=== PATIENT | male | born 1995 | race Caucasian/White ===

== ENCOUNTER 2017-02-08 12:47 | Emergency (ER) | payer BC ==
[~2017-02-08] VITALS: Ht 182.9 cm; Wt 87.0 kg
[~2017-02-08 12:47] MED LIST: CETITAB27 PO
[2017-02-08 12:50] VITALS: TEMP 37; Ht 182.9 cm; Wt 87.0 kg
[2017-02-08] MEDS ORDERED: MULT-930 PO (13:02)
[2017-02-08] MEDS ORDERED: MONT1TAB3 PO (13:02)
[2017-02-08] MEDS ORDERED: LEVO-371 PO (13:03)
[2017-02-08 14:05] LABS: BASO % 0.6 %; BASO ABS # 0.06 K/uL (0-0.2); COMPLETE YES; EOS % 4.5 %; IG% 0.1 %; LYMPH % 16.3 %; LYMPH ABS # 1.57 K/uL (1.2-3.4); MEAN CELL VOLUME 87.1 fL (80-100); MEAN CORPUSCULAR HEMOGLOBIN 30.3 pg (25-34); MEAN CORPUSCULAR HGB CONC 34.8 g/dl (32-36); MEAN PLATELET VOLUME 9.5 fL (7.4-10.4); MONO % 9.3 %; NEUT % 69.2 %; PLATELET COUNT 234 K/uL (130-400); RED BLOOD COUNT 4.59 M/uL (4.7-6.1); WHITE BLOOD COUNT 9.62 K/uL (4.8-10.8)
[2017-02-08 14:33] VITALS: BP 136/76; PULSE 68; O2SAT 98
--- NOTE | 2017-02-08 20:23 | EMERGENCY ROOM VISIT NOTE ---
History First contact with patient: 13:04 Chief Complaint: ARM PAIN Stated Complaint: SUDDEN PAIN IN ARM PIT History of Present Illness The patient is a 21 year old male who presents to the Emergency Room with complaints of 2 small blackened areas present over his left lateral chest wall. It is along the area of the latissimus. Patient states he awoke this morning with pain in that area. He looked in the mirror and noticed the2 black spots. He states the area was somewhat red and swollen earlier today, though that has resolved. He was seen at [facility] and evaluated. He was told to see his PCP. Because he could not go home to [place], he came here for reevaluation. He was told that there were enlarged lymph nodes in his axilla at [facility]. He also states earlier today there was a tingling type pain running down the inside of his left arm. This has resolved. He denies being in the [place] and denies any tick exposure. He has never had this in the past. No other complaints. He denies any fevers, chills, sweats, nausea, or vomiting. No other treatment. Review of Systems REVIEW OF SYSTEM: HEENT: No dizziness, visual problems, hearing loss, or tinnitus. There is no difficulty swallowing and no oral lesions are present. LYMPH: No adenopathy. PULMONARY: No cough, shortness of breath, sputum production or hemoptysis. CARDIOVASCULAR: No chest pain, palpitations, shortness of breath or peripheral edema. GASTROINTESTINAL: No diarrhea, constipation, nausea, vomiting, or abdominal pain. GENITOURINARY: No dysuria, frequency, urgency or nocturia. NEUROLOGIC: No weakness, muscle tenderness, epilepsy or history of neurological problems. MUSCULOSKELETAL: No history of joint tenderness/swelling. No history of arthritis or arthralgias. SKIN: No rashes or lesions. PSYCHIATRIC: No history of depression or mental illness. ENDOCRINE: No history of diabetes, thyroid disorders, or abnormal hair growth. Past Medical/Surgical History Medical Problems: (1) Asthma (2) Valvular heart disease Surgical Problems: (1) History of appendectomy Septoplasty 2014 Family History Diabetes mellitus FH: cancer Hypertension, gallbladder disease. Parents are living. Social History Smoking Status: Never Smoker Smokeless Tobacco Use: No Alcohol Use: occasionally Drug Use: none Marital Status: single Housing Status: lives with roommate Occupation Status: unemployed, [employer] student Current/Historical Medications Scheduled Levocetirizine Dihydrochloride (Xyzal), 1 TAB PO DAILY Montelukast Sodium (Singulair), 10 MG PO DAILY Allergies Coded Allergies: No Known Allergies (Unverified , 02/08/17) Physical Exam Vital Signs Date Time Temp Pulse Resp B/P Pulse Ox O2 Delivery O2 Flow Rate FiO2 02/08/17 14:33 68 18 136/76 98 02/08/17 12:50 37.0 61 18 144/85 98 Room Air Pain Rating (0-10): 5.0 Physical Exam Gen.: Well-developed, well-nourished, young white male, in no acute distress. Laying on a bed. Alert and oriented. Somewhat anxious. Skin:Warm and dry with good turgor. No rashes. No ecchymosis or erythema. He has 2 small black areas in the cutaneous tissue, approximately 2 mm each in size. They are by about 4 mm. Nothing is expressible. There is no abscess palpable underneath. They appear as to punctate areas of necrosis. They are not comedones or retained hair follicles. The patient is not diaphoretic. No abrasions. Heart: Heart RRR. No MGR. Peripheral pulses are 2+. Lungs: Lungs are clear to auscultation. No crackles rhonchi or wheezing. Good air movement. The patient is able to take a deep breath. Musculoskeletal: Patient has full range of motion of his left shoulder, elbow, wrist. He is able to reach overhead. No palpable defect in the latissimus. Neurologic: Gross sensation is intact across the left arm by soft touch. No palpable deficit on the chest wall. Lymphatics: His axillary and bicipital lymph nodes were palpated. There is no enlargement when compared to the noninvolved side. They are nontender. Medical Decision & Procedures Laboratory Results 02/08/17 13:45 Red Blood Count 4.59, Mean Corpuscular Volume 87.1, Mean Corpuscular Hemoglobin 30.3, Mean Corpuscular Hemoglobin Concent 34.8, Mean Platelet Volume 9.5, Neutrophils (%) (Auto) 69.2, Lymphocytes (%) (Auto) 16.3, Monocytes (%) (Auto) 9.3, Eosinophils (%) (Auto) 4.5, Basophils (%) (Auto) 0.6, Neutrophils # (Auto) 6.66, Lymphocytes # (Auto) 1.57, Monocytes # (Auto) 0.89, Eosinophils # (Auto) 0.43, Basophils # (Auto) 0.06 Test 02/08/17 13:45 White Blood Count 9.62 K/uL (4.8-10.8) Red Blood Count 4.59 M/uL (4.7-6.1) Hemoglobin 13.9 g/dL (14.0-18.0) Hematocrit 40.0 % (42-52) Mean Corpuscular Volume 87.1 fL (80-100) Mean Corpuscular Hemoglobin 30.3 pg (25-34) Mean Corpuscular Hemoglobin Concent 34.8 g/dl (32-36) Platelet Count 234 K/uL (130-400) Mean Platelet Volume 9.5 fL (7.4-10.4) Neutrophils (%) (Auto) 69.2 % Lymphocytes (%) (Auto) 16.3 % Monocytes (%) (Auto) 9.3 % Eosinophils (%) (Auto) 4.5 % Basophils (%) (Auto) 0.6 % Neutrophils # (Auto) 6.66 K/uL (1.4-6.5) Lymphocytes # (Auto) 1.57 K/uL (1.2-3.4) Monocytes # (Auto) 0.89 K/uL (0.11-0.59) Eosinophils # (Auto) 0.43 K/uL (0-0.5) Basophils # (Auto) 0.06 K/uL (0-0.2) RDW Standard Deviation 40.9 fL (36.4-46.3) RDW Coefficient of Variation 12.8 % (11.5-14.5) Immature Granulocyte % (Auto) 0.1 % Immature Granulocyte # (Auto) 0.01 K/uL (0.00-0.02) CBC obtained today was unremarkable. Procedure Oral consent was obtained for exploratory drainage. Skin was cleansed with alcohol. 18-gauge needle was used to unroofed the blackened areas. No fluid was obtained. No foreign body. There is nothing underneath other than additional dermal layers. ED Course Patient was educated regarding today's findings. Conservative care measures were discussed. Possibility of spider bite was discussed. I do not suspect a tick bite as he has not been in an area of potential exposure. He was reassured that I do not feel any lymph node enlargement. CBC was obtained and was normal. He was reassured that I do not suspect sepsis. I did speak with his mother by telephone and discussed his care with her. He'll keep an eye on the area to be sure the tissue does not become more necrotic. If it does, I would strongly suspect brown recluse bite. He'll keep the area covered with triple antibiotic ointment and a Band-Aid. Return to the ED or [place] [facility] services for any worsening symptoms. Medical Decision Possibility of tick bite, spider bite, abscess, and retained foreign body were considered. Impression Primary Impression: Insect bite (nonvenomous) of left back wall of thorax, initial... Departure Information Dispostion Home / Self-Care Condition GOOD Forms HOME CARE DOCUMENTATION FORM, MOTRIN USE, TYLENOL USE, IMPORTANT VISIT INFORMATION Patient Instructions My [facility] Additional Instructions Keep the area clean with soap and water and cover with antibiotic ointment Watch the area closely for any increase in the darkened area Return to the ED or follow-up with [facility] services if there is increased redness, pain, or yellow/white drainage Tylenol and Motrin every 6 hours as needed for mild discomfort
== END 2017-02-08 14:33 | disposition home or self-care (01) ==
LOC: C.EDB 12:48 → C.EDD 14:33
DX: S20.462A Insect bite (nonvenomous) of left back wall of thorax, initial encounter (principal); W57.XXXA Bitten or stung by nonvenomous insect and other nonvenomous arthropods, initial encounter; J45.909 Unspecified asthma, uncomplicated; I38 Endocarditis, valve unspecified; Z83.3 Family history of diabetes mellitus; Z82.49 Family history of ischemic heart disease and other diseases of the circulatory system